=== PATIENT | female | born 1985 | race Hispanic/Latino ===

== ENCOUNTER 2017-05-03 02:22 | Emergency (ER) | payer BC ==
[2017-05-03 03:05] VITALS: RESP 17; TEMP 99; O2SAT 97
--- NOTE | 2017-05-03 04:29 | ED PDOC ---
HPI: Skin/Bite Injury Time Seen by Provider: 05/03/17 03:19 Chief Complaint (Nursing): Abnormal Skin Integrity Chief Complaint (Provider): Skin Injury History Per: Patient History/Exam Limitations: no limitations Onset/Duration Of Symptoms: Mins (RN PRIOR AUTHORIZATION) Current Symptoms Are (Timing): Still Present Location Of Injury: Left: Hand Quality Of Symptoms: Painful Additional Complaint(s): 31 year old female presents to ED with complaints of a laceration to her left 3rd digit sustained RN PRIOR AUTHORIZATION. Notes injury was sustained while washing dishes and being cut on a glass object, (-) numbness, decreased ROM, or other injury. Tetanus is UTD. PCP: None Past Medical History Reviewed: Historical Data, Nursing Documentation, Vital Signs Vital Signs: Last Vital Signs Temp 99.0 F 05/03/17 03:00 Pulse 67 05/03/17 03:00 Resp 17 05/03/17 03:00 BP 97/47 L 05/03/17 03:00 Pulse Ox 97 05/03/17 05:16 - Medical History PMH: No Chronic Diseases - Family History Family History: States: No Known Family Hx - Living Arrangements Living Arrangements: With Family - Allergies Allergies/Adverse Reactions: Allergies Allergy/AdvReac Type Severity Reaction Status Date / Time No Known Allergies Allergy Verified 05/03/17 03:05 Review of Systems ROS Statement: Except As Marked, All Systems Reviewed And Found Negative Musculoskeletal: Positive for: Hand Pain (Left 3rd digit pain with laceration) Physical Exam - Reviewed Nursing Documentation Reviewed: Yes Vital Signs Reviewed: Yes - Physical Exam Appears: Positive for: Non-toxic, In Acute Distress (mild painful distress) Skin: Positive for: Normal Color, Warm, Dry Respiratory: Negative for: Respiratory Distress Pulses-Radial (L): 2+ Extremity: Positive for: Normal ROM, Capillary Refill (normal), Other (2 cm v- shaped laceration on medial aspect of left 3rd digit by PIP joint). 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 Negative for : Motor/Sensory Deficits - ECG O2 Sat by Pulse Oximetry: 97 (RA) Pulse Ox Interpretation: Normal Medical Decision Making Medical Decision Makin See procedure note for wound repair. 0340 Patient tolerated procedure well. Based on history and exam, plan will be for finger laceration. Advised to follow up with primary care physician in 1-2 days without fail. Instructed on proper wound care. Return to the emergency room at any time for any new or worsening symptoms. Patient states she fully agrees with and understands discharge instructions. States that she agrees with the plan and disposition. Verbalized and repeated discharge instructions and plan. I have given the patient opportunity to ask any additional questions. Scribe Attestation: Documented by Leidy Cote acting as a scribe for Denita Luu PA-C. Scribe Attestation: All medical record entries made by the Scribe were at my direction and personally dictated by me. I have reviewed the chart and agree that the record accurately reflects my personal performance of the history, physical exam, medical decision making, and the department course for this patient. I have also personally directed, reviewed, and agree with the discharge instructions and disposition. Disposition - Clinical Impression Clinical Impression: Finger laceration - Patient ED Disposition Is Patient to be Admitted: No Counseled Patient/Family Regarding: Diagnosis, Need For Followup - Disposition Referrals: Mildred Mendoza MD [Medical Doctor] - Disposition: Routine/Home Disposition Time: 03:45 Condition: STABLE Additional Instructions: Thank you for letting us take care of you today. You were treated for finger laceration. The emergency medical care you received today was directed at your acute symptoms. If you were prescribed any medication, please fill it and take as directed. It may take several days for your symptoms to resolve. Return to the Emergency Department if your symptoms worsen, do not improve, or if you have any other problems. Please contact your doctor in 2 days for re-evaluation and follow up / or call one of the physicians/clinics you have been referred to that are listed on the Patient Visit Information form that is included in your discharge packet. Bring any paperwork you were given at discharge with you along with any medications you are taking to your follow up visit. Our treatment cannot replace ongoing medical care by a primary care provider (PCP) outside of the emergency department. Thank you for allowing the [facility] team to be part of your care today. 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 Procedures - Laceration simple, single layer clean irrigated extensively left hand Site: hand Side (if applicable): left (left 3rd digit) Size (cm): 2 Description: other (V-shaped) Depth: simple, single layer Pre-repair: irrigated extensively (with water) Skin layer closed with: other (Dermabond, patient tolerated the procedure well, clean dressing applied)
[2017-05-03 07:55] VITALS: BP 112/68; PULSE 83
== END 2017-05-03 04:21 | disposition home or self-care (01) ==
LOC: H.ER 02:22
DX: S61.203A Unspecified open wound of left middle finger without damage to nail, initial encounter (principal); W25.XXXA Contact with sharp glass, initial encounter; Y93.G1 Activity, food preparation and clean up